=== PATIENT | female | born 1970 | race Two or more races ===

== ENCOUNTER 2023-08-07 18:30 | Emergency (ER) | payer SELFPAY ==
[~2023-08-07] VITALS: Ht 160 cm; Wt 65.8 kg
[2023-08-07 19:58] VITALS: BP 139/82; TEMP 97.8; O2SAT 99
[2023-08-07] MEDS ORDERED: CARB15DR12 EACH EAR (20:17)
== END 2023-08-07 20:25 | disposition home or self-care (01) ==
LOC: ER 18:44
DX: H61.21 Impacted cerumen, right ear (principal); H92.01 Otalgia, right ear

== ENCOUNTER 2024-11-02 15:12 | Emergency (ER) | payer MEDICAID ==
[~2024-11-02] VITALS: Ht 162.6 cm; Wt 73.9 kg
[~2024-11-02 15:12] MED LIST: CARB15DR12 EACH EAR
[2024-11-02 16:14] LABS: BASOPHILS # (AUTO) 0.1 K/uL (0.0-0.2); BASOPHILS % (AUTO) 1.3 % (0.0-2.0); EOSINOPHILS # (AUTO) 0.3 K/uL (0.0-0.7); EOSINOPHILS % (AUTO) 3.3 % (0.0-6.0); HEMATOCRIT 42 % (33-45); HEMOGLOBIN 14.7 g/dL (11.5-14.8); LYMPHOCYTES # (AUTO) 2.6 K/uL (0.8-4.8); LYMPHOCYTES % (AUTO) 34.2 % (20.0-44.0); MEAN CORPUSCULAR HEMOGLOBIN 32 PG (26.0-33.0); MEAN CORPUSCULAR HGB CONC 35 g/dl (31.0-36.0); MEAN CORPUSCULAR VOLUME 91 fL (82-100); MONOCYTES # (AUTO) 0.4 K/uL (0.1-1.30); MONOCYTES % (AUTO) 5.3 % (2.0-12.0); NEUTROPHILS # (AUTO) 4.3 K/uL (1.8-8.9); NEUTROPHILS % (AUTO) 55.9 % (43.0-81.0); PLATELET COUNT (AUTO) 239 K/uL (150-450); RED CELL DISTRIBUTION WIDTH 13.4 % (11.5-15.0); WHITE BLOOD COUNT (AUTO) 7.7 K/uL (4.3-11.0)
[2024-11-02 16:28] LABS: CALCIUM, SERUM 9.5 mg/dL (8.5-10.1); CARBON DIOXIDE 25 mmol/L (21-32); CHLORIDE 106 mmol/L (98-107); CREATININE 0.8 mg/dL (0.6-1.3); GLUCOSE 148 mg/dL (74-106); SODIUM SERUM 140 mmol/L (136-145); UREA NITROGEN, BLOOD 16 mg/dL (7-18)
[2024-11-02 16:34] LABS: ALBUMIN 3.7 g/dL (3.4-5.0); ALKALINE PHOSPHATASE 82 U/L (46-116); BILIRUBIN,TOTAL 0.3 mg/dL (0.2-1.0); TOTAL PROTEIN, SERUM 7.2 g/dL (6.4-8.2)
[2024-11-02 16:44] LABS: ALANINE AMINOTRANSFERASE 42 U/L (12-78); ASPARTATE AMINOTRANSFERASE 24 U/L (15-37)
[2024-11-02 19:36] VITALS: BP 125/67; TEMP 98.8; O2SAT 98
== END 2024-11-02 19:37 | disposition home or self-care (01) ==
LOC: ER 15:18
DX: R20.2 Paresthesia of skin (principal); E78.5 Hyperlipidemia, unspecified
CPT/HCPCS: 36415; 70450-TC; 80048-TC; 80076-TC; 83735-TC; 84484-TC; 85025-TC